=== PATIENT | female | born 1995 | race Caucasian/White ===

== ENCOUNTER 2023-02-19 09:34 | Emergency (ER) | payer OTHER ==
[~2023-02-19] VITALS: Ht 157.5 cm; Wt 62.6 kg
[2023-02-19 09:48] VITALS: BP 123/69
--- NOTE | 2023-02-19 10:51 | NUR ---
PT AMBULATED TO BED 05
[2023-02-19] MEDS ORDERED: IBUP-2213 PO (11:32)
[2023-02-19 11:50] VITALS: BP 106/61
--- NOTE | 2023-02-19 11:53 | NUR ---
Patient discharged with v/s stable. Written and verbal after care instructions given and explained. Patient alert, oriented and verbalized understanding of instructions. Ambulatory with to car. All questions addressed prior to discharge. ID band removed. Patient advised to follow up with dentist. Rx of motrin given. Dups provided. Patient educated on indication of medication including possible reaction and side effects. Opportunity to ask questions provided and answered. Pt instructed to return if condition worsens.
== END 2023-02-19 11:53 | disposition home or self-care (01) ==
LOC: MED 09:34
DX: M26.69 Other specified disorders of temporomandibular joint (principal); Z79.899 Other long term (current) drug therapy
CPT/HCPCS: 70110; 99283